=== PATIENT | male | born 1955 ===

== ENCOUNTER 2017-03-20 13:45 | Outpatient (CLI) | payer OTHER ==
--- NOTE | 2017-03-20 15:28 | Diagnostic Imaging Report ---
Indications: Cerebral vascular accident manifesting as right-sided weakness Technique: Three-dimensional [id number] imaging of the central aspect of the intracranial arterial circulation was performed without IV gadolinium administration. Three-dimensional maximum intensity projection images were reconstructed from raw data obtained. Findings: Comparison: None Images degraded by motion. Most significantly, this degrades and partially obscures the distal M1 and proximal M2 segments of both middle cerebral arteries. Intracranial segments of both internal carotid arteries, A1 and A2 segments of both anterior cerebral arteries, , proximal M1 and distal M2 M2 segments of both middle cerebral arteries, intracranial segments of both vertebral arteries, basilar artery, P1-P3 segments of both posterior cerebral arteries and major central branches are patent and normal in caliber. No additional significant stenosis, occlusion, dissection, other mural irregularity or intraluminal filling defect, aneurysm, vascular malformation, neovascularity, or early venous opacification demonstrated. IMPRESSION: Bilateral distal M1/proximal M2 segments significantly degraded and partially obscured by imaging artifact. Significant flow limitation not excludable on these images. These arterial segments are better visualized on concurrent cervical MR angiogram, however, and appear patent. Incomplete [place], developmental variant Otherwise negative MR angiogram of the central aspect of the intracranial arterial circulation
--- NOTE | 2017-03-20 15:33 | Diagnostic Imaging Report ---
Indications: Cerebrovascular accident manifesting as right-sided weakness Technique: Three-dimensional [id number] imaging of the cervical arterial circulation was performed without IV gadolinium administration, per patient's refusal. Three-dimensional maximum intensity projection images were reconstructed from raw data obtained. Findings: Comparison: None Lack of gadolinium and presence of significant motion artifact degrades images, limiting evaluation. Aortic arch is patent and normal caliber. Great vessels emanate from arch in normal order. Right brachiocephalic artery patent, normal caliber. Origins/proximal aspects of bilateral common carotid, internal carotid, subclavian, vertebral arteries patent degraded by artifact. Remaining portions of these arteries, bilateral external carotid arteries patent, normal caliber. IMPRESSION: Limited evaluation of cervical arterial anatomy due to technical limitations described. Flow-limiting abnormalities of the proximal aspects of either or both common carotid, internal carotid, subclavian, vertebral arteries cannot be excluded. Recommend repeat MRA/CTA with gadolinium/contrast for better evaluation.
--- NOTE | 2017-03-23 08:39 | Diagnostic Imaging Report ---
Indications: Cerebrovascular accident manifesting as right-sided weakness Technique: Sagittal and axial T1 weighted FLAIR, axial T2-weighted fat saturated fast spin echo propeller, T2-weighted FLAIR, T2*-weighted gradient echo, and diffusion sequences of the brain were performed without IV gadolinium administration. Findings: Comparison: None Images are degraded by motion. The millimeters circumscribed ovoid focus of restricted diffusion is present in the lateral aspect of left thalamus. Multiple smaller circumscribed foci of signal change/parenchymal loss are present in the right thalamus and basal ganglia, bifrontal periventricular white matter, left marie radiata. Multifocal, partially confluent T2 signal hyperintensity bilateral periventricular and deep white matter. Ventricles, cisterns, sulci are mildly, diffusely prominent.. No evidence of mass or hemorrhage, other signal abnormality, mass effect, midline shift, hydrocephalus, or increased intracranial pressure. Central vascular flow voids are preserved. Mucoperiosteal thickening is scattered throughout the paranasal sinuses. 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
== END 2017-03-20 15:45 | disposition home or self-care (01) ==
LOC: MRI 13:45
DX: I69.951 Hemiplegia and hemiparesis following unspecified cerebrovascular disease affecting right dominant side (principal); J01.90 Acute sinusitis, unspecified
CPT/HCPCS: 70544; 70547; 70551